=== PATIENT | female | born 1950 | race Caucasian/White ===

== ENCOUNTER 2017-06-27 14:05 | Emergency (ER) | payer OTHER ==
[2017-06-27 14:16] VITALS: BP 159/69; BMI 30.2
[2017-06-27] MEDS ORDERED: NORFLEX INJ IM ONE (14:45)
[2017-06-27] MEDS ORDERED: TORADOL 60 MG VIAL IM ONE (14:45)
--- NOTE | 2017-06-27 14:46 | DR.EXTPAIN ---
HPI - Time seen Time seen: 14:35 - PCP Primary Care Physician: kodi vargas - HPI Comment HPI Comment: PROGRESSIVELY GETTING WORSE. ROM DECREASE. NO TRAUMA. - Complaint/Symptoms Chief Complaint Doctor Comments: PATIENT HAVE LEFT SHOULDER PAIN SINCE LAST NIGHT. Chief Complaint:: pt stated last night her left shoulder started hurting and this morning she cant raise her left arm with out very bad pain. - Nurses notes reviewed Nurses Notes Review: Yes - Source History Provided: Patient - Mode of arrival Mode of Arrival: Ambulatory - Timing Onset of Chief Complaint: 06/26/17 - Context History of: Arthritis - Associated signs and symptoms Associated Signs and Symptoms: Pain PMH - PMH Past Medical History: Yes Past Medical History: Diabetes, Seizures Past Surgical History: Yes Surgical History: Abdominal Surgery, Appendectomy, [employer] Surgery, Hysterectomy Past Surgical History Comment: colon ca, - Family History History of Family Medical Conditions: Yes Family Medical History: Diabetes Mellitus - Social History Does patient currently use any type of tobacco product: No Have you used tobacco products in the last 12 months: No Type of Tobacco Use: None Does any household member use tobacco: No Alcohol Use: None Do you use any recreational Drugs:: No Lives With: Family Lives Where: Home - infectious screening In the last 2 months have you had wt loss of >10#?: NO Have you had fever, night sweats or hemotysis?: No Have you traveled outside the country in the last 6 months?: No Isolation: Standard ROS - Review of Systems Constitutional: No Symptoms Reported Eyes: No Symptoms Reported ENTM: No Symptoms Reported Respiratoy: No Symptoms Reported Cardiovascular: No Symptoms Reported Gastrointestinal/Abdominal: No Symptoms Reported Genitourinary: No Symptoms Reported Neurological: No Symptoms Reported Musculoskeletal: Left, Shoulder (PAIN.) Integumentary: No Symptoms Reported Hematologic/Lymphatic: No Symptoms Reported Endocrine: No Symptoms Reported All Other Systems: Reviewed and Negative PE - Vital Signs Vitals: Temperature 98.6 F Pulse Rate 91 Respiratory Rate 16 Blood Pressure 159/69 O2 Sat by Pulse Oximetry 98 - General Limitations: No Limitations General Appearance: Alert - Head Head Exam: Normal Inspection - Eyes Eye exam: Normal Appearance - ENT ENT Exam: Normal External Ear Exam - Neck Neck Exam: Trachea Midline - Chest Chest Inspection: Symmetric Chest Wall Rise - Respiratory Respiratory Exam: Normal Lung Sounds Bilat Respiratory Exam: Bilateral Clear to Auscultation - Cardiovascular Cardiovascular Exam: Regular Rate, Normal Rhythm, Normal Heart Sounds - Abdominal Exam Abdominal Exam: Normal Inspection - Extremities Extremities Exam: Tenderness (LEFT SHOULDER TENDER. ROM DECREASE. PULSES INTACT. ) - Upper Extremities Shoulder Exam: Tenderness. negative: Full ROM (DECREASE ROM.) - Neurological Neurological Exam: Alert, Oriented X3 - Psychiatric Psychiatric Exam: Normal Affect, Normal Mood - Skin Skin Exam: Normal Color MDM - Differential Diagnosis Differential Diagnosis: Sprain, Other (TENDINITIS, ROTATORY CUFF INJURY, BURSITIS) Course - Treatment Treatment: SEE ORDERS. - Education/Counseling Education/Counseling: Patient, Family, Education Educated On: Diagnosis, Needs for Follow Up ROR - XRAY XRAY Interpreted by: Radiologist XRAY Findings: REPORT DISCUSS WITH PATIENT. - Diagnosis Discharge Problem: Sprain of left shoulder, Left shoulder pain, Tendinitis - Discharge Plan Disposition: 01 HOME, SELF-CARE Condition: Stable Prescriptions: Cyclobenzaprine HCl [FLEXERIL 10 MG *] 10 mg PO TID #20 tab Ibuprofen [MOTRIN TAB 800 MG *] 800 mg PO Q8H PRN #30 tab PRN Reason: Pain/Inflammation - Follow ups/Referrals Follow ups/Referrals: BLAIRE VARGAS [Primary Care Provider] - 2 days - Instructions Instructions: Shoulder Sprain, Shoulder Pain, [id number], Tendinitis, Easy-to -Read Additional Instructions: RETURN TO ED IF WORSE.
[2017-06-27] MEDS ORDERED: TORADOL 60 MG VIAL ONE (14:59)
[2017-06-27] MEDS ORDERED: NORFLEX INJ ONE (15:00)
--- NOTE | 2017-06-27 15:07 | RAD ---
History: Left shoulder pain Technique: Three views of the left shoulder Comparison:NONE Findings: The soft tissues are grossly unremarkable. There is no acute fracture or dislocation. there is mi ld AC osteoarthrosis. The acromioclavicular and coracoclavicular intervals are maintained. Small ossi fic density on of the external rotation AP view, projecting adjacent to the greater tuberosity sugges ts calcific tendinitis. Impression: 1. Findings suggesting calcific tendinitis. This can be further assessed with nonemergent outpatient shoulder MRI if clinically indicated. 2. Mild AC osteoarthrosis. Reported By:
== END 2017-06-27 16:02 | disposition home or self-care (01) ==
LOC: ER 14:20
DX: S43.402A Unspecified sprain of left shoulder joint, initial encounter (principal); M77.8 Other enthesopathies, not elsewhere classified; M19.012 Primary osteoarthritis, left shoulder; Y33.XXXA Other specified events, undetermined intent, initial encounter
CPT/HCPCS: 73030; 96372; 99282; 99283; J1885; J2360